=== PATIENT | female | born 1975 | race Caucasian/White ===

== ENCOUNTER 2016-10-02 20:44 | Emergency (ER) | payer OTHER ==
[2016-10-02 20:56] VITALS: BP 105/76
--- NOTE | 2016-10-02 21:16 | ED Physician Documentation ---
History of Present Illness - Stated complaint Stated Complaint: LEGS SWELLING - Chief complaint Chief Complaint: Ext Problem - History obtained from History obtained from: Patient, Family - History of Present Illness Timing: Yesterday Pain level max: 1 Pain level now: 1 Improved by: nothing Worsened by: nothing - Additonal information Additional information: Patient is a 40-year-old female who is visiting from [facility]. [place] the [place], approximately 1 mile in her feet began to swell. Does not recall stepping on anything. The foot swelling has continued today. Bilateral feet. No redness, no warmth. 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 - Present Medications Home Medications: Ambulatory Orders Medication Instructions Recorded Confirmed Alprazolam [Xanax] 1 mg PO Q4H 10/02/16 10/02/16 - Allergies Allergies/Adverse Reactions: Allergies Allergy/AdvReac Type Severity Reaction Status Date / Time No Known Drug Allergies Allergy Verified 10/02/16 20:56 - Social History Does the pt smoke?: Yes Smoking Status: Current every day smoker Does the pt drink ETOH?: Yes ETOH Use: Wine Does the pt have substance abuse?: No - Immunizations Immunizations: TDAP current <10years PD ED PE NORMAL - Vitals Vital signs reviewed: Yes - General General: Alert and oriented X 3, No acute distress - Derm Derm: Warm and dry - Extremities Extremities: No deformity, No tenderness to palpate, Normal ROM s pain, No calf tenderness / cord, Other (mild swelling B feet and ankles. 1+ edema. non-pitting ) - Neuro Neuro: Alert and oriented X 3 - Psych Psych: Normal mood, Normal affect Results - Vitals Vitals: Vital Signs - 24 hr 10/02/16 20:52 Temperature 36.6 C Heart Rate 86 Respiratory 18 Rate Blood Pressure 105/76 O2 Saturation 99 Oxygen O2 Source Room air PD MEDICAL DECISION MAKING - ED course Complexity details: considered differential, d/w patient, d/w family ED course: Patient is a 40-year-old female who presents to the emergency department with what appears to be dependent edema of the bilateral lower extremities. She is well-appearing, nontoxic. Afebrile. No evidence of infection. We will continue supportive care and follow-up with her doctor. No evidence of DVT. Patient counseled regarding signs and symptoms for which I believe and urgent re -evaluation would be necessary. Patient with good understanding of and agreement to plan and is comfortable going home at this time This document was made in part using voice recognition software. While efforts are made to proofread this document, sound alike and grammatical errors may occur. Departure - Departure Disposition: 01 Home, Self Care Clinical Impression: Edema Qualifiers: Edema type: unspecified Qualified Code(s): R60.9 - Edema, unspecified Condition: Good Instructions: ED Edema Legs Bilateral Follow-Up: your,doctor in 1 week [Other] Comments: Elevate your legs. You can use motrin or tylenol as needed for pain. Return if you worsen. Discharge Date/Time: 10/02/16 21:21
== END 2016-10-02 21:21 | disposition home or self-care (01) ==
LOC: ED 20:44
DX: R60.9 Edema, unspecified (principal); F17.200 Nicotine dependence, unspecified, uncomplicated
CPT/HCPCS: 99282; 99283